=== PATIENT | female | born 1985 | race Two or more races ===

== ENCOUNTER 2018-04-06 20:24 | Emergency (ER) | payer SELFPAY ==
[~2018-04-06] VITALS: Ht 167.6 cm; Wt 81.6 kg
[2018-04-06] MEDS ORDERED: EPINEPHrine 1 MG/ML VIAL ONE (20:43)
[2018-04-06] MEDS: diphenhydrAMINE 50 MG/ML VIAL IVP ONE (20:52)
[2018-04-06] MEDS: methylPREDNISolone SOD SUCC PF 125 MG/2 ML VIAL. IV ONE (20:52)
[2018-04-06] MEDS: FAMOTIDINE 20 MG/2 ML VIAL IVP ONE (20:52)
[2018-04-06] MEDS: EPINEPHrine 1 MG/ML VIAL SQ ONE (20:53)
[2018-04-06] MEDS: IV NORMAL SALINE 1000ML BAG 1,000 ML IV ONE (20:53)
[2018-04-06 21:02] LABS: BASO % 0 % (0-3); EOS # 0.2 x10^3/uL (0.0-0.7); EOS % 2 % (0-3); HEMATOCRIT 44.9 % (36.0-47.0); HEMOGLOBIN 15.9 g/dL (12.0-15.5); LYMPH # 6.4 x10^3/uL (1.0-4.8); LYMPH % 65 % (24-48); MEAN CORPUSCULAR HEMOGLOBIN 33 pg (25-35); MEAN CORPUSCULAR HGB CONC 36 g/dL (31-37); MEAN CORPUSCULAR VOLUME 92 fL (79-100); MONO # 0.7 x10^3/uL (0.0-1.1); MONO % 7 % (0-9); NEUT # 2.6 x10^3uL (1.8-7.7); NEUT % 26 % (31-73); PLATELET COUNT 299 x10^3/uL (140-400); RED BLOOD COUNT 4.86 x10^6/uL (3.50-5.40); RED CELL DISTRIBUTION WIDTH 12.4 % (11.5-14.5); WHITE BLOOD COUNT 9.9 x10^3/uL (4.0-11.0)
[2018-04-06 21:09] LABS: CALCIUM 9.4 mg/dL (8.5-10.1); CREATININE 0.8 mg/dL (0.6-1.0); GFR 82.6; POTASSIUM 3.8 mmol/L (3.5-5.1)
[2018-04-06 21:15] LABS: TOTAL BILIRUBIN 0.3 mg/dL (0.2-1.0)
[2018-04-06 21:39] LABS: % BANDS 1 % (0-9); % BASOS 1 % (0-3); % EOS 1 % (0-5); % LYMPHS 45 % (24-48); % MONOS 11 % (0-10); % SEGS 18 % (35-66)
[2018-04-06 21:42] LABS: PLT ESTIMATE ADEQUATE (ADEQUATE)
[2018-04-06 21:43] LABS: % ATYL 23 % (0-0)
[2018-04-06 23:30] VITALS: BP 97/56
--- NOTE | 2018-04-06 23:46 | PHYS DOC ---
Past Medical History Past Medical History: No Pertinent History Past Surgical History: No Surgical History Alcohol Use: Occasionally Drug Use: None Adult General Chief Complaint Chief Complaint: ALLERGIC REACTION HPI HPI Patient is a 32-year-old female who presents with hives all over body. Patient is not sure what caused the hives but indicates that she had just taken an ibuprofen with some red colored Gatorade right before the rash erupted. She indicates that she feels itchy all over and is a little bit short of breath. She denies any chest pain. Patient indicates that she has never had a similar episode in the past. She denies any recent changes to soaps, lotions or detergents. She denies any wheezing or coughing. Review of Systems Review of Systems Constitutional: Denies fever or chills [] HENT: Denies nasal congestion or sore throat [] Respiratory: Complains of mild shortness of breath [] Cardiovascular: Denies chest pain[] GI: Denies abdominal pain [] Musculoskeletal: Denies back pain or joint pain [] Integument: Complains of rash and pruritus[] All other systems were reviewed and found to be within normal limits, except as documented in this note. Current Medications Current Medications Current Medications Medications (Trade) Dose Ordered Sig/Jairo Start Time Stop Time Status Last Admin Dose Admin Diphenhydramine HCl (Benadryl) 50 mg 1X ONCE 04/06/18 20:45 04/06/18 20:46 DC 04/06/18 20:52 50 MG Epinephrine HCl (Adrenalin) 0.3 mg 1X ONCE 04/06/18 20:45 04/06/18 20:46 DC 04/06/18 20:53 0.3 MG Famotidine (Pepcid Vial) 20 mg 1X ONCE 04/06/18 20:45 04/06/18 20:46 DC 04/06/18 20:52 20 MG Methylprednisolone Sodium Succinate (SOLU-Medrol 125MG VIAL) 125 mg 1X ONCE 04/06/18 20:45 04/06/18 20:46 DC 04/06/18 20:52 125 MG Sodium Chloride 1,000 ml @ 1,000 mls/hr 1X ONCE 04/06/18 21:00 04/06/18 22:00 DC 04/06/18 20:53 1,000 MLS/HR Allergies Allergies Allergies Coded Allergies Type Severity Reaction Last Updated Verified No Known Drug Allergies 04/06/18 No Physical Exam Physical Exam Constitutional: Well developed, well nourished, no acute distress, non-toxic appearance. [] HENT: Normocephalic, atraumatic, bilateral external ears normal, oropharynx moist, no oral exudates, nose normal. [] Eyes: PERRLA, EOMI, conjunctiva normal, no discharge. [] Neck: Normal range of motion, no tenderness, supple, no stridor. [] Cardiovascular: Heart rate regular rhythm [] Lungs & Thorax: Bilateral breath sounds clear to auscultation [] Abdomen: Bowel sounds normal, soft, no tenderness. [] Skin: Diffuse urticarial rash is present. [] Extremities: No tenderness, no cyanosis, no clubbing, ROM intact, no edema. [] Neurologic: Alert and oriented X 3, normal motor function, normal sensory function, no focal deficits noted. [] Current Patient Data Vital Signs Vital Signs Date Time Temp Pulse Resp B/P (MAP) Pulse Ox O2 Delivery O2 Flow Rate FiO2 04/06/18 23:30 76 12 97/56 (70) 96 Room Air 04/06/18 20:49 15.0 04/06/18 20:27 97.7 97.7 Lab Values Laboratory Tests Test 04/06/18 20:28 White Blood Count 9.9 x10^3/uL (4.0-11.0) Red Blood Count 4.86 x10^6/uL (3.50-5.40) Hemoglobin 15.9 g/dL (12.0-15.5) H Hematocrit 44.9 % (36.0-47.0) Mean Corpuscular Volume 92 fL (79-100) Mean Corpuscular Hemoglobin 33 pg (25-35) Mean Corpuscular Hemoglobin Concent 36 g/dL (31-37) Red Cell Distribution Width 12.4 % (11.5-14.5) Platelet Count 299 x10^3/uL (140-400) Neutrophils (%) (Auto) 26 % (31-73) L Lymphocytes (%) (Auto) 65 % (24-48) H Monocytes (%) (Auto) 7 % (0-9) Eosinophils (%) (Auto) 2 % (0-3) Basophils (%) (Auto) 0 % (0-3) Neutrophils # (Auto) 2.6 x10^3uL (1.8-7.7) Lymphocytes # (Auto) 6.4 x10^3/uL (1.0-4.8) H Monocytes # (Auto) 0.7 x10^3/uL (0.0-1.1) Eosinophils # (Auto) 0.2 x10^3/uL (0.0-0.7) Basophils # (Auto) 0.0 x10^3/uL (0.0-0.2) Segmented Neutrophils % 18 % (35-66) L Band Neutrophils % 1 % (0-9) Lymphocytes % 45 % (24-48) Atypical Lymphocytes % (Manual) 23 % (0-0) H Monocytes % 11 % (0-10) H Eosinophils % 1 % (0-5) Basophils % 1 % (0-3) Platelet Estimate Adequate (ADEQUATE) Sodium Level 140 mmol/L (136-145) Potassium Level 3.8 mmol/L (3.5-5.1) Chloride Level 102 mmol/L (98-107) Carbon Dioxide Level 24 mmol/L (21-32) Anion Gap 14 (6-14) Blood Urea Nitrogen 16 mg/dL (7-20) Creatinine 0.8 mg/dL (0.6-1.0) Estimated GFR (Cockcroft-Gault) 82.6 BUN/Creatinine Ratio 20 (6-20) Glucose Level 107 mg/dL (70-99) H Calcium Level 9.4 mg/dL (8.5-10.1) Total Bilirubin 0.3 mg/dL (0.2-1.0) Aspartate Amino Transferase (AST) 71 U/L (15-37) H Alanine Aminotransferase (ALT) 120 U/L (14-59) H Alkaline Phosphatase 70 U/L (46-116) Total Protein 8.0 g/dL (6.4-8.2) Albumin 4.0 g/dL (3.4-5.0) Albumin/Globulin Ratio 1.0 (1.0-1.7) Laboratory Tests 04/06/18 20:28 Laboratory Tests 04/06/18 20:28 EKG EKG [] Radiology/Procedures Radiology/Procedures [] Course & Med Decision Making Course & Med Decision Making Pertinent Labs and Imaging studies reviewed. (See chart for details) An IV was established and blood work drawn. Initially orders were entered for Benadryl, Solu-Medrol and Pepcid; however, prior to receiving medications, patient became hypotensive and diaphoretic. Lungs continue to be clear to auscultation with no evidence of respiratory compromise. After reviewing patient 's blood pressure, patient was additionally given a dose of subcutaneous epinephrine. Patient also given an IV fluid bolus. After approximately 15 minutes, patient's blood pressure had stabilized and patient improved dramatically. Patient was reevaluated approximately 30 minutes after receiving medications and rash almost completely gone. Patient observed in the emergency room for a total of 3 hours to observe for any further symptoms and patient remains asymptomatic. Orthostatic vital signs were obtained and were normal. Dragon Disclaimer Dragon Disclaimer This electronic medical record was generated, in whole or in part, using a voice recognition dictation system. Departure Departure Impression: Primary Impression: Allergic reaction Additional Impression: Vasovagal episode Disposition: HOME, SELF-CARE Condition: STABLE Referrals: NO PCP (PCP) Patient Instructions: Hives, Near-Syncope Problem Qualifiers Primary Impression: Allergic reaction Encounter type: initial encounter Qualified Codes: T78.40XA - Allergy, unspecified, initial encounter NAIMA WARD Jr. DO Apr 06, 2018 23:46
== END 2018-04-06 23:55 | disposition home or self-care (01) ==
LOC: ER 20:24
DX: T78.49XA Other allergy, initial encounter (principal); R55 Syncope and collapse; X58.XXXA Exposure to other specified factors, initial encounter; I95.9 Hypotension, unspecified; R61 Generalized hyperhidrosis
CPT/HCPCS: 36415; 80053; 85007; 85025; 96361; 96372; 96374; 96375; 99285; J0171; J1200; J2930; J3490; J7030

== ENCOUNTER 2018-08-08 19:30 | Emergency (ER) | payer SELFPAY ==
[~2018-08-08] VITALS: Ht 170.2 cm; Wt 81.6 kg
[2018-08-08 20:06] VITALS: BP 118/68
[2018-08-08] MEDS ORDERED: methylPREDNISolone SOD SUCC PF 125 MG/2 ML VIAL. IM ONE (20:15)
[2018-08-08] MEDS ORDERED: FAMOTIDINE 20 MG TABLET. PO ONE (20:15)
[2018-08-08] MEDS ORDERED: FAMO-63 PO (20:31)
[2018-08-08] MEDS ORDERED: PRED50TA PO (20:31)
--- NOTE | 2018-08-08 20:31 | PHYS DOC ---
Past Medical History Past Medical History: No Pertinent History (ZONIA ALVAREZ APRN) Past Surgical History: No Surgical History (ZONIA ALVAREZ APRN) Alcohol Use: Occasionally Drug Use: None (ZONIA ALVAREZ APRN) Adult General Chief Complaint Chief Complaint: ALLERGIC REACTION [facility] HPI Patient is a 33 year old female who presents to the ED today complaining of an allergic reaction. Patient states she had supreme pizza and suddenly developed a rash on her neck and face, she had the pizza 30 minutes prior to coming to the ED. She states she took 2 tablets of Zyrtec, she states the rash has decreased. Patient denies any difficulty breathing or swallowing. Denies any throat or tongue swelling. Patient states she's had this pizza before. Historian was patient is in the family member to interpret for Swedish (ZONIA ALVAREZ APRN) Review of Systems Review of Systems Constitutional: Denies fever or chills [] Eyes: Denies change in visual acuity, redness, or eye pain [] HENT: Denies nasal congestion or sore throat [] Respiratory: Denies cough or shortness of breath [] Cardiovascular: No additional information not addressed in HPI [] GI: Denies abdominal pain, nausea, vomiting, bloody stools or diarrhea [] : Denies dysuria or hematuria [] Musculoskeletal: Denies back pain or joint pain [] Integument: Reports allergic reaction with rash on the face and neck Neurologic: Denies headache, focal weakness or sensory changes [] All other systems were reviewed and found to be within normal limits, except as documented in this note. (ZONIA ALVAREZ APRN) Current Medications Current Medications Current Medications Medications (Trade) Dose Ordered Sig/Jairo Start Time Stop Time Status Last Admin Dose Admin Famotidine (Pepcid) 20 mg 1X ONCE 08/08/18 20:15 08/08/18 20:16 DC 08/08/18 20:20 20 MG Methylprednisolone Sodium Succinate (SOLU-Medrol 125MG VIAL) 125 mg 1X ONCE 08/08/18 20:15 08/08/18 20:16 DC 08/08/18 20:20 125 MG (BRYAN FAUSTIN MD) Allergies Allergies Allergies Coded Allergies Type Severity Reaction Last Updated Verified No Known Drug Allergies 04/06/18 No (BRYAN FAUSTIN MD) Physical Exam Physical Exam Constitutional: Well developed, well nourished, no acute distress, non-toxic appearance. [] HENT: Normocephalic, atraumatic, bilateral external ears normal, oropharynx moist, no oral exudates, nose normal. [] Airways open. No throat or tongue swelling. Eyes: PERRLA, EOMI, conjunctiva normal, no discharge. [] Neck: Normal range of motion, no tenderness, supple, no stridor. [] Cardiovascular:Heart rate regular rhythm, no murmur [] Lungs & Thorax: Bilateral breath sounds clear to auscultation [] Abdomen: Bowel sounds normal, soft, no tenderness, no masses, no pulsatile masses. [] Skin: Mild rash noted on the neck, small amount of rash on the cheeks. Back: No tenderness, no CVA tenderness. [] Extremities: No tenderness, no cyanosis, no clubbing, ROM intact, no edema. [] Neurologic: Alert and oriented X 3, normal motor function, normal sensory function, no focal deficits noted. [] Psychologic: Affect normal, judgement normal, mood normal. [] (ZNOIA ALVAREZ APRN) Current Patient Data Vital Signs Vital Signs Date Time Temp Pulse Resp B/P (MAP) Pulse Ox O2 Delivery O2 Flow Rate FiO2 08/08/18 20:06 98.0 60 18 118/68 (85) 97 Room Air 98.0 (BRYAN FAUSTIN MD) EKG EKG [] (ZONIA ALVAREZ APRN) Radiology/Procedures Radiology/Procedures [] (ZONIA ALVAREZ APRN) Course & Med Decision Making Course & Med Decision Making Pertinent Labs and Imaging studies reviewed. (See chart for details) This is a 33-year-old. Patient presenting to the ED today with a rash on her face and neck that began after she had eaten supreme Pizza. Airway is open on arrival to the ED, no throat or tongue swelling, no lip swelling. Rash present on arrival to the ED. Was given Solu-Medrol, Pepcid, patient already had 2 tablets of Zyrtec. Patient was discharged with prednisone, Pepcid and instructed to take Zyrtec every day. (ZONIA ALVAREZ APRN) Course & Med Decision Making Staff Physician Addendum: I was working in the ER during the course of this patient's visit. I was available for consultation as needed, but I was not directly involved in the care of this patient. (BRYAN FAUSTIN MD) Dragon Disclaimer Dragon Disclaimer This electronic medical record was generated, in whole or in part, using a voice recognition dictation system. (ZONIA ALVAREZ APRN) Departure Departure Impression: Primary Impression: Allergic reaction to food Disposition: HOME, SELF-CARE Condition: STABLE Referrals: NO PCP (PCP) Follow-up in one week Patient Instructions: Food Allergy Additional Instructions: You were evaluated in the emergency room for an allergic reaction to food. Take the prescribed indication as ordered. Continue taking Zyrtec once a day. Follow- up with your own doctor in 1-2 weeks. Scripts Famotidine (PEPCID) 20 Mg Tablet 20 MG PO DAILY, #7 TAB Prov: ZONIA ALVAREZ APRN 08/08/18 Prednisone (PREDNISONE) 50 Mg Tablet 1 TAB PO DAILY, #5 TAB Prov: ZONIA ALVAREZ APRN 08/08/18 Problem Qualifiers Primary Impression: Allergic reaction to food Encounter type: initial encounter Qualified Codes: T78.1XXA - Other adverse food reactions, not elsewhere classified, initial encounter ZONIA ALVAREZ APRN Aug 08, 2018 20:31 BRYAN FAUSTIN MD Aug 08, 2018 21:57
== END 2018-08-08 20:34 | disposition home or self-care (01) ==
LOC: ER 19:30
DX: T78.1XXA Other adverse food reactions, not elsewhere classified, initial encounter (principal); R21 Rash and other nonspecific skin eruption; Y92.89 Other specified places as the place of occurrence of the external cause
CPT/HCPCS: 96372; 99283; J2930

== ENCOUNTER 2019-01-08 14:39 | Emergency (ER) | payer SELFPAY ==
[~2019-01-08] VITALS: Ht 162.6 cm; Wt 74.4 kg
[~2019-01-08 14:39] MED LIST: FAMO-63 PO; PRED50TA PO
[2019-01-08 15:20] VITALS: BP 90/36
--- NOTE | 2019-01-08 15:23 | PHYS DOC ---
Past Medical History Past Medical History: No Pertinent History Past Surgical History: No Surgical History Alcohol Use: Occasionally Drug Use: None Adult General Chief Complaint Chief Complaint: ALLERGIC REACTION [facility] HPI Patient is a 33 year old female who was brought here by her for evaluation of a rash all over her body. 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 She was sitting in the recliner at home, watching TV when she started having itchy rash over body so she was brought in for evaluation. Patient denies any chest pain, no trouble breathing, no tongue or lip or throat swelling. Review of Systems Review of Systems Constitutional: Denies fever or chills [] Eyes: Denies change in visual acuity, redness, or eye pain [] HENT: Denies nasal congestion or sore throat [] Respiratory: Denies cough or shortness of breath [] Cardiovascular: No additional information not addressed in HPI [] GI: Denies abdominal pain, nausea, vomiting, bloody stools or diarrhea [] : Denies dysuria or hematuria [] Musculoskeletal: Denies back pain or joint pain [] Integument: POSITIVE FOR RASH, ITCHING Neurologic: Denies headache, focal weakness or sensory changes [] Endocrine: Denies polyuria or polydipsia [] All other systems were reviewed and found to be within normal limits, except as documented in this note. Current Medications Current Medications Current Medications Medications (Trade) Dose Ordered Sig/Jairo Start Time Stop Time Status Last Admin Dose Admin Diphenhydramine HCl (Benadryl) 50 mg 1X ONCE 01/08/19 15:30 01/08/19 15:31 DC 01/08/19 15:48 50 MG Famotidine (Pepcid) 20 mg 1X ONCE 01/08/19 15:30 01/08/19 15:31 DC 01/08/19 15:48 20 MG Methylprednisolone Sodium Succinate (SOLU-Medrol 125MG VIAL) 125 mg 1X ONCE 01/08/19 15:30 01/08/19 15:31 DC 01/08/19 15:51 125 MG Allergies Allergies Allergies Coded Allergies Type Severity Reaction Last Updated Verified No Known Drug Allergies 04/06/18 No Physical Exam Physical Exam Constitutional: Well developed, well nourished, no acute distress, non-toxic appearance. [] HENT: Normocephalic, atraumatic, bilateral external ears normal, oropharynx moist, no oral exudates, nose normal. [] Eyes: PERRLA, EOMI, conjunctiva normal, no discharge. [] Neck: Normal range of motion, no tenderness, supple, no stridor. [] Cardiovascular:Heart rate regular rhythm, no murmur [] Lungs & Thorax: Bilateral breath sounds clear to auscultation [] Abdomen: Bowel sounds normal, soft, no tenderness, no masses, no pulsatile masses. [] Skin: Warm, dry, DIFFUSE URTICARIA, HIVES ALL FACE, NECK, TRUNK AND EXTREMITIES AREA. Back: No tenderness, no CVA tenderness. [] Extremities: No tenderness, no cyanosis, no clubbing, ROM intact, no edema. [] Neurologic: Alert and oriented X 3, normal motor function, normal sensory function, no focal deficits noted. [] Psychologic: Affect normal, judgement normal, mood normal. [] Current Patient Data Vital Signs Vital Signs Date Time Temp Pulse Resp B/P (MAP) Pulse Ox O2 Delivery O2 Flow Rate FiO2 01/08/19 15:20 97.5 69 20 90/36 (54) 97 Room Air 97.5 EKG EKG [] Radiology/Procedures Radiology/Procedures [] Course & Med Decision Making Course & Med Decision Making Pertinent Labs and Imaging studies reviewed. (See chart for details) Patient was given medication in the ER, she felt much better. The rash almost disappeared. Patient will be discharged home, she was instructed to go home and wash all of her new clothing before she can wear them. Dragon Disclaimer Dragon Disclaimer This electronic medical record was generated, in whole or in part, using a voice recognition dictation system. Departure Departure Impression: Primary Impression: Urticaria Disposition: HOME, SELF-CARE Condition: IMPROVED Referrals: NO PCP (PCP) FOLLOW UP WITH YOUR FAMILY DOCTOR FOR A REFERRAL TO AN ALLERGY DOCTOR FOR FURTHER TESTING. Patient Instructions: Nell Blackmon Diphenhydramine Hcl (BENADRYL) 25 Mg Capsule 25 MG PO QID PRN for ITCHING, #20 CAP Prov: RAMEZ MARAVILLA DO 01/08/19 Famotidine (PEPCID) 20 Mg Tablet 20 MG PO HS for 5 Days, #5 TAB Prov: RAMEZ MARAVILLA DO 01/08/19 Prednisone (PREDNISONE ) 10 Mg Tablet 40 MG PO DAILY for 5 Days, #20 TAB 0 Refills Prov: RAMEZ MARAVILLA DO 01/08/19 RAMEZ MARAVILLA DO Jan 08, 2019 15:23
[2019-01-08] MEDS ORDERED: methylPREDNISolone SOD SUCC PF 125 MG/2 ML VIAL. IM ONE (15:30)
[2019-01-08] MEDS ORDERED: diphenhydrAMINE 50 MG/ML VIAL IM ONE (15:30)
[2019-01-08] MEDS ORDERED: FAMOTIDINE 20 MG TABLET. PO ONE (15:30)
[2019-01-08] MEDS ORDERED: PRED-220 PO (16:37)
[2019-01-08] MEDS ORDERED: DIPH25CA58 PO (16:37)
[2019-01-08] MEDS ORDERED: FAMO-63 PO (16:37)
== END 2019-01-08 17:00 | disposition home or self-care (01) ==
LOC: ER 14:39
DX: L50.9 Urticaria, unspecified (principal)
CPT/HCPCS: 96372; 99284; J1200; J2930

== ENCOUNTER 2020-10-15 04:34 | Observation (INO) | payer SELFPAY ==
[~2020-10-15 04:34] MED LIST changes: +DIPH25CA58 PO; +PRED-220 PO
[2020-10-15] MEDS ORDERED: IV RINGERS,LACTATED 1000ML 1,000 ML IV PRN (04:45)
[2020-10-15] MEDS ORDERED: ACETAMINOPHEN 325 MG TABLET. PO PRN (04:45)
--- NOTE | 2020-10-15 04:57 | NUR ---
At 0445 patient arrived to the unit with c/o vaginal bleeding and abdominal pain. She is a Stated to triage that lmp in April ( making her 20-23 weeks). Patient presents ER discharge paper from ER at , it states patient has a "very early " Upon questioning patient and SO, patient states she was told she was 4-5 weeks at following a ultrasound. DX with a threatened AB at . Called Dr. Virk to get Okay to send back to ER for evaluation. Urine obtained and sent to ER with patient. Patient off unit to ER per wheelchair accompanied by Madhuri Finn RN.
[2020-10-15 05:21] LABS: BILIRUBIN,URINE NEGATIVE (NEG); CLARITY,URINE CLEAR; COLOR,URINE YELLOW; NITRITE,URINE NEGATIVE (NEG); PROTEIN,URINE NEGATIVE (NEG-TRACE); UROBILINOGEN,URINE 0.2 mg/dL (0.2 mg/dL)
[2020-10-15 05:30] LABS: BARBITURATES NEG (NEG); BENZODIAZEPINES NEG (NEG); CANNABINOIDS NEG (NEG); COCAINE NEG (NEG); METHADONE NEG (NEG); OPIATES NEG (NEG); PHENCYCLIDINE NEG (NEG)
[2020-10-15 05:31] LABS: AMPHETAMINE/METHAMPHETAMINE NEG (NEG)
[2020-10-15 05:46] LABS: BACTERIA,URINE FEW /HPF (0-FEW)
== END 2020-10-15 04:55 | disposition home or self-care (01) ==
LOC: 3 SO LND 04:34
PROVIDERS: ADMIT Obstetrics & Gynecology; ATTEND Obstetrics & Gynecology
DX: O46.91 Antepartum hemorrhage, unspecified, first trimester (principal); O26.891 Other specified pregnancy related conditions, first trimester; R10.9 Unspecified abdominal pain; Z3A.01 Less than 8 weeks gestation of pregnancy; Z79.899 Other long term (current) drug therapy
CPT/HCPCS: 59025; 80307; 81001; 81025; 87086; G0378; G0379

== ENCOUNTER 2020-10-15 04:59 | Emergency (ER) | payer SELFPAY ==
[~2020-10-15] VITALS: Ht 162.6 cm; Wt 72.7 kg
[2020-10-15] MEDS ORDERED: IV NORMAL SALINE 1000ML BAG 1,000 ML IV ONE (05:30)
[2020-10-15] MEDS ORDERED: ONDANSETRON PF 4 MG/2 ML VIAL. IVP ONE (05:30)
[2020-10-15] MEDS ORDERED: fentaNYL PF VIAL 100 MCG/2 ML VIAL IVP ONE (05:30)
--- NOTE | 2020-10-15 05:30 | PHYS DOC ---
Past Medical History Past Medical History: No Pertinent History (RAMEZ SAMPSON DO) Past Surgical History: No Surgical History (RAMEZ SAMPSON DO) Smoking Status: Never Smoker Alcohol Use: None Drug Use: None (RAMEZ SAMPSON DO) General Adult EDM: Chief Complaint: VAGINAL BLEEDING HPI: HPI: Patient is a 35 year old female who presents to ER due to vaginal bleeding and pelvic pain. Patient says she is . She is not sure when her last menstrual period was. She went to [facility] yesterday due to pelvic pain and vaginal bleeding. She was told that she has threatened miscarriage, SHE was about 5 weeks , ultrasound shown a gestational sac in the uterus. She was discharged home. She woke up this morning and the pain and vaginal bleed became more severe so she came here for evaluation. This is her first . She is not sure her blood type. (RAMEZ SAMPSON DO) Review of Systems: Review of Systems: Constitutional: Denies fever or chills. [] Eyes: Denies change in visual acuity. [] HENT: Denies nasal congestion or sore throat. [] Respiratory: Denies cough or shortness of breath. [] Cardiovascular: Denies chest pain or edema. [] GI: Denies abdominal pain, nausea, vomiting, bloody stools or diarrhea. [] : Positive for vaginal bleeding, pelvic pain. Musculoskeletal: Denies back pain or joint pain. [] Integument: Denies rash. [] Neurologic: Denies headache, focal weakness or sensory changes. [] Endocrine: Denies polyuria or polydipsia. [] Lymphatic: Denies swollen glands. [] Psychiatric: Denies depression or anxiety. [] (RAMEZ SAMPSON DO) Heart Score: C/O Chest Pain: N/A Risk Factors: Risk Factors: DM, Current or recent (<one month) smoker, HTN, HLP, family history of CAD, obesity. Risk Scores: Score 0 - 3: 2.5% MACE over next 6 weeks - Discharge Home Score 4 - 6: 20.3% MACE over next 6 weeks - Admit for Clinical Observation Score 7 - 10: 72.7% MACE over next 6 weeks - Early Invasive Strategies (RAMEZ SAMPSON DO) Current Medications: Current Medications Medications (Trade) Dose Ordered Sig/Jairo Start Time Stop Time Status Last Admin Dose Admin Fentanyl Citrate (Fentanyl 2ml Vial) 50 mcg 1X ONCE 10/15/20 05:30 10/15/20 05:31 Ondansetron HCl (Zofran) 4 mg 1X ONCE 10/15/20 05:30 10/15/20 05:31 Sodium Chloride 1,000 ml @ 1,000 mls/hr 1X ONCE 10/15/20 05:30 10/15/20 06:29 (RAMEZ SAMPSON DO) Allergies: Allergies: Allergies Uncoded Allergies Type Severity Reaction Last Updated Verified ibuprofen Allergy Severe Hives 10/15/20 (RAMEZ SAMPSON DO) Physical Exam: PE: Constitutional: Well developed, well nourished, no acute distress, non-toxic appearance. [] HENT: Normocephalic, atraumatic, bilateral external ears normal, oropharynx moist, no oral exudates, nose normal. [] Eyes: PERRLA, EOMI, conjunctiva normal, no discharge. [] Neck: Normal range of motion, no tenderness, supple, no stridor. [] Cardiovascular:Heart rate regular rhythm, no murmur [] Lungs & Thorax: Bilateral breath sounds clear to auscultation [] Abdomen: Bowel sounds normal, soft, there is tenderness to palpation in suprabupic area, no rebound, no guarding, no masses, no pulsatile masses. [] : MODERATE AMOUNT OF BLOOD IN VAGINAL CANAL, PRODUCT OF CONCEPTION IN THE VAGINAL CANAL, CERVIX IS OPEN. Skin: Warm, dry, no erythema, no rash. [] Back: No tenderness, no CVA tenderness. [] Extremities: No tenderness, no cyanosis, no clubbing, ROM intact, no edema. [] Neurologic: Alert and oriented X 3, normal motor function, normal sensory function, no focal deficits noted. [] Psychologic: Affect normal, judgement normal, mood normal. [] (RAMEZ SAMPSON DO) Current Patient Data: Labs: Laboratory Tests Test 10/15/20 05:30 White Blood Count 11.5 x10^3/uL Red Blood Count 4.25 x10^6/uL Hemoglobin 13.7 g/dL Hematocrit 39.9 % Mean Corpuscular Volume 94 fL Mean Corpuscular Hemoglobin 32 pg Mean Corpuscular Hemoglobin Concent 34 g/dL Red Cell Distribution Width 12.9 % Platelet Count 242 x10^3/uL Neutrophils (%) (Auto) 76 % Lymphocytes (%) (Auto) 17 % Monocytes (%) (Auto) 5 % Eosinophils (%) (Auto) 1 % Basophils (%) (Auto) 0 % Neutrophils # (Auto) 8.8 x10^3/uL Lymphocytes # (Auto) 2.0 x10^3/uL Monocytes # (Auto) 0.6 x10^3/uL Eosinophils # (Auto) 0.1 x10^3/uL Basophils # (Auto) 0.0 x10^3/uL Maternal Serum HCG Beta Subunit 690 mIU/mL Sodium Level 140 mmol/L Potassium Level 3.9 mmol/L Chloride Level 105 mmol/L Carbon Dioxide Level 21 mmol/L Anion Gap 14 Blood Urea Nitrogen 11 mg/dL Creatinine 0.7 mg/dL Estimated GFR (Cockcroft-Gault) 94.7 BUN/Creatinine Ratio 16 Glucose Level 105 mg/dL Calcium Level 8.7 mg/dL Magnesium Level 2.0 mg/dL Total Bilirubin 0.6 mg/dL Aspartate Amino Transf (AST/SGOT) 14 U/L Alanine Aminotransferase (ALT/SGPT) 18 U/L Alkaline Phosphatase 51 U/L Total Protein 7.2 g/dL Albumin 3.9 g/dL Albumin/Globulin Ratio 1.2 Current Medications Medications (Trade) Dose Ordered Sig/Jairo Route PRN Reason Start Time Stop Time Status Last Admin Dose Admin Fentanyl Citrate (Fentanyl 2ml Vial) 50 mcg 1X ONCE IVP 10/15/20 05:30 10/15/20 05:31 DC 10/15/20 05:39 Sodium Chloride 1,000 ml @ 1,000 mls/hr 1X ONCE IV 10/15/20 05:30 10/15/20 06:29 10/15/20 05:38 Ondansetron HCl (Zofran) 4 mg 1X ONCE IVP 10/15/20 05:30 10/15/20 05:31 DC 10/15/20 05:39 (RAMEZ SAMPSON DO) EKG: EKG: [] (RAMEZ SAMPSON DO) Radiology/Procedures: Radiology/Procedures: [] (RAMEZ SAMPSON DO) Course & Med Decision Making: Course & Med Decision Making Pertinent Labs and Imaging studies reviewed. (See chart for details) Patient is a 35-year-old female who presented to ER due to pelvic pain or vaginal bleeding. Patient cervix was open, there was products of conception in the vaginal canal consistent with complete . Awaiting for ultrasound results and blood type, patient care was endorsed to incoming physician at shift change, Dr. Bill Vogt. (RAMEZ SAMPSON DO) Course & Med Decision Making Assumed care from Dr Sampson. At check out Rh status was pending. Patient does not need rhogam. Patient's test results and vitals while in the ED were fully r eviewed and discussed with the patient. Patient is stable and at this time does not need admission to the hospital. We have discussed strict return precautions and the importance of following up with their Primary Care Physician. Patient stated understanding and was given an opportunity to ask any questions. Patient is in agreement with plan. (BILL VOGT MD) Dragon Disclaimer: Dragon Disclaimer: This electronic medical record was generated, in whole or in part, using a voice recognition dictation system. (RAMEZ SAMPSON DO) Departure Departure Impression: Primary Impression: Complete miscarriage Disposition: 01 HOME / SELF CARE / HOMELESS Condition: STABLE Referrals: NO PCP (PCP) Patient Instructions: Miscarriage RAMEZ SAMPSON DO October 15, 2020 05:29 BILL VOGT MD October 15, 2020 07:15
[2020-10-15 05:56] LABS: BASO % 0 % (0-3); EOS # 0.1 x10^3/uL (0.0-0.7); EOS % 1 % (0-3); HEMATOCRIT 39.9 % (36.0-47.0); HEMOGLOBIN 13.7 g/dL (12.0-15.5); LYMPH % 17 % (24-48); MEAN CORPUSCULAR HEMOGLOBIN 32 pg (25-35); MEAN CORPUSCULAR HGB CONC 34 g/dL (31-37); MEAN CORPUSCULAR VOLUME 94 fL (79-100); MONO # 0.6 x10^3/uL (0.0-1.1); MONO % 5 % (0-9); NEUT # 8.8 x10^3/uL (1.8-7.7); NEUT % 76 % (31-73); PLATELET COUNT 242 x10^3/uL (140-400); RED BLOOD COUNT 4.25 x10^6/uL (3.50-5.40); RED CELL DISTRIBUTION WIDTH 12.9 % (11.5-14.5); WHITE BLOOD COUNT 11.5 x10^3/uL (4.0-11.0)
[2020-10-15 06:04] LABS: CALCIUM 8.7 mg/dL (8.5-10.1); CREATININE 0.7 mg/dL (0.6-1.0); GFR 94.7; POTASSIUM 3.9 mmol/L (3.5-5.1)
[2020-10-15 06:10] LABS: ALBUMIN 3.9 g/dL (3.4-5.0); ALBUMIN/GLOBULIN RATIO 1.2 (1.0-1.7); TOTAL BILIRUBIN 0.6 mg/dL (0.2-1.0); TOTAL PROTEIN 7.2 g/dL (6.4-8.2)
--- NOTE | 2020-10-15 06:44 | RAD ---
INDICATION: Reason: vaginal bleeding, pelvic pain, . / Spl. Instructions: / History: COMPARISON: None. TECHNIQUE: Grayscale and color ultrasound images uterus and adnexa. Transvaginal images obtained FINDINGS: Uterus: 110 x 53 x 53 mm. 6 mm cystic structures seen near the lower uterine segment to cervical region. There is some complex fluid in the vaginal canal. Small simple free fluid. Right Ovary: 29 x 26 x 20 mm. Left Ovary: 26 x 15 x 15 mm. Vascular flow identified to bilateral ovaries. IMPRESSION: * Small cystic structure is seen within the lower uterine segment to cervical region. Could be seco ndary to causes such as a early gestational sac before the development of a pole with a possibl e small yolk sac within. This is in a lower than typical location and follow-up will be needed to ens ure that this is not secondary to in progress. Its also possible that this is secondary to a pseudogestational sac. * Fluid and debris within the vaginal region Electronically signed by: Willie Tejeda MD (10/15/2020 6:42 AM) [id number]
[2020-10-15 07:50] VITALS: BP 102/58
--- NOTE | 2020-10-17 15:11 | PATHOLOGY ---
[facility] Accession Number: [id number] . 01 Material submitted: . product of conception - PRODUCT OF CONCEPTION . 02 Diagnosis: Tissue designated "products of conception": - Segments of decidual tissue showing focal hemorrhage and acute inflammation. (JPM:kelly; 10/17/2020) [facility] 10/17/2020 1352 Local . 02 Comment: No chorionic villi are identified. (JPM:kelly; 10/17/2020) . 02 Electronically signed: . Vicente Sanders MD, Pathologist NPI- [id number] . 01 Gross description: . The specimen is received in formalin, labeled "Rosenthal, Yvette", "products of conception". Received are multiple sheet like segments of flexible, glistening pale marques-dark pink soft tissue, measuring 9.4 x 5.2 x 1.5 cm in aggregate dimensions. No tissues are identified. Sectioning through the various segments reveals a spongy, pale [id number] pink cut surface. [employer] sections are submitted in cassettes A1-A3.([facility]; 10/16/2020) [facility] 10/16/2020 0911 Local . 02 Pathologist provided ICD-10: N93.9 . 02 CPT . 761894 Specimen Comment: A courtesy copy of this report has been sent to [phone] Specimen Comment: Report sent to Performed at: 01 [facility] [address] [facility] [address], [place] [id number] MD Dimitri Molina MD Phone: [phone] Performed at: 02 [facility] [address] [place], [place] [id number] MD Vicente Sanders MD Phone: [phone]
== END 2020-10-15 08:04 | disposition home or self-care (01) ==
LOC: ER 04:59
DX: O03.9 Complete or unspecified spontaneous abortion without complication (principal); Z88.8 Allergy status to other drugs, medicaments and biological substances
CPT/HCPCS: 36415; 76801; 80053; 83735; 84702; 85025; 86900; 86901; 88305; 96374; 96375; 99285; J2405; J3010; J7030